=== PATIENT | male | born 1960 | race Caucasian/White ===

== ENCOUNTER → 2022-03-28 09:33 | Outpatient (BNVA) | payer OTHER, SELFPAY | PROVIDERS: Referring Provider Nurse Practitioner Family; Visit Provider Internal Medicine Rheumatology | DX: M05.79 Rheumatoid arthritis with rheumatoid factor of multiple sites without organ or systems involvement (principal); E11.9 Type 2 diabetes mellitus without complications; Z71.85 Encounter for immunization safety counseling; Z79.899 Other long term (current) drug therapy; Z79.4 Long term (current) use of insulin; Z79.84 Long term (current) use of oral hypoglycemic drugs | CPT/HCPCS: 99204 ==

== ENCOUNTER → 2022-05-22 13:39 | Outpatient (BNVA) | payer OTHER, SELFPAY | PROVIDERS: Visit Provider Internal Medicine Rheumatology | DX: M05.79 Rheumatoid arthritis with rheumatoid factor of multiple sites without organ or systems involvement (principal); Z79.899 Other long term (current) drug therapy; E11.9 Type 2 diabetes mellitus without complications; Z71.85 Encounter for immunization safety counseling; Z79.4 Long term (current) use of insulin | CPT/HCPCS: 36415; 80076; 82565; 85025; 86140; 99214 ==

== ENCOUNTER → 2022-08-22 14:09 | Outpatient (BNVA) | payer OTHER, SELFPAY | PROVIDERS: Visit Provider Internal Medicine Rheumatology | DX: M05.79 Rheumatoid arthritis with rheumatoid factor of multiple sites without organ or systems involvement (principal); Z79.899 Other long term (current) drug therapy; E11.9 Type 2 diabetes mellitus without complications; Z71.85 Encounter for immunization safety counseling | CPT/HCPCS: 99214 ==

== ENCOUNTER → 2022-11-21 12:40 | Outpatient (BNVA) | payer OTHER, SELFPAY | PROVIDERS: Visit Provider Internal Medicine Rheumatology | DX: M06.9 Rheumatoid arthritis, unspecified (principal); E11.9 Type 2 diabetes mellitus without complications; Z71.85 Encounter for immunization safety counseling; Z79.899 Other long term (current) drug therapy; M05.79 Rheumatoid arthritis with rheumatoid factor of multiple sites without organ or systems involvement; Z79.4 Long term (current) use of insulin | CPT/HCPCS: 99214 ==

== ENCOUNTER → 2024-01-07 15:02 | Outpatient (BNVA) | payer OTHER, SELFPAY | PROVIDERS: Visit Provider Internal Medicine Rheumatology | DX: M05.79 Rheumatoid arthritis with rheumatoid factor of multiple sites without organ or systems involvement (principal); Z79.899 Other long term (current) drug therapy; Z71.85 Encounter for immunization safety counseling; E11.8 Type 2 diabetes mellitus with unspecified complications; Z11.59 Encounter for screening for other viral diseases; Z11.1 Encounter for screening for respiratory tuberculosis | CPT/HCPCS: 36415; 80076; 82565; 85025; 85651; 86140; 99214 ==

== ENCOUNTER → 2024-02-26 12:21 | Outpatient (BNVA) | payer OTHER, SELFPAY | PROVIDERS: Referring Provider Nurse Practitioner Family; Visit Provider Nurse Practitioner Family | DX: D48.5 Neoplasm of uncertain behavior of skin (principal); L57.0 Actinic keratosis; L82.0 Inflamed seborrheic keratosis; L29.8 Other pruritus; L82.1 Other seborrheic keratosis; L81.7 Pigmented purpuric dermatosis; L72.0 Epidermal cyst; L81.4 Other melanin hyperpigmentation; D18.01 Hemangioma of skin and subcutaneous tissue | CPT/HCPCS: 17000; 17110; 69100; 99203 ==

== ENCOUNTER → 2024-03-11 09:27 | Outpatient (BNVA) | payer OTHER, SELFPAY | PROVIDERS: Visit Provider Dermatology | DX: C44.219 Basal cell carcinoma of skin of left ear and external auricular canal (principal) | CPT/HCPCS: 17311 ==

== ENCOUNTER → 2024-03-25 14:29 | Outpatient (BNVA) | payer OTHER, SELFPAY | PROVIDERS: Visit Provider Dermatology | DX: D22.4 Melanocytic nevi of scalp and neck (principal); L82.0 Inflamed seborrheic keratosis; L82.1 Other seborrheic keratosis; Z85.828 Personal history of other malignant neoplasm of skin | CPT/HCPCS: 17110; 99213 ==

== ENCOUNTER → 2024-04-16 12:37 | Outpatient (BNVA) | payer OTHER, SELFPAY | PROVIDERS: Visit Provider Dermatology | DX: L82.1 Other seborrheic keratosis (principal); D22.5 Melanocytic nevi of trunk; D48.5 Neoplasm of uncertain behavior of skin; Z85.828 Personal history of other malignant neoplasm of skin | CPT/HCPCS: 11104; 99213 ==

== ENCOUNTER → 2024-05-13 13:08 | Outpatient (BNVA) | payer OTHER, SELFPAY | PROVIDERS: Visit Provider Internal Medicine Rheumatology | DX: M05.79 Rheumatoid arthritis with rheumatoid factor of multiple sites without organ or systems involvement (principal); Z79.899 Other long term (current) drug therapy; Z71.85 Encounter for immunization safety counseling; E11.9 Type 2 diabetes mellitus without complications; M19.012 Primary osteoarthritis, left shoulder | CPT/HCPCS: 99214 ==

== ENCOUNTER → 2024-09-09 13:05 | Outpatient (BNVA) | payer OTHER, SELFPAY | PROVIDERS: Visit Provider Internal Medicine Rheumatology | DX: Z79.899 Other long term (current) drug therapy (principal); Z71.85 Encounter for immunization safety counseling; M05.79 Rheumatoid arthritis with rheumatoid factor of multiple sites without organ or systems involvement | CPT/HCPCS: 36415; 80076; 82565; 85025; 85651; 86140; 99214 ==

== ENCOUNTER → 2024-10-14 13:02 | Outpatient (BNVA) | payer OTHER, SELFPAY | PROVIDERS: Visit Provider Nurse Practitioner Family | DX: L73.9 Follicular disorder, unspecified (principal); L89.312 Pressure ulcer of right buttock, stage 2; E13.620 Other specified diabetes mellitus with diabetic dermatitis; L82.1 Other seborrheic keratosis; D22.5 Melanocytic nevi of trunk; Z08 Encounter for follow-up examination after completed treatment for malignant neoplasm; Z85.828 Personal history of other malignant neoplasm of skin; L82.0 Inflamed seborrheic keratosis; L29.89 Other pruritus; R20.9 Unspecified disturbances of skin sensation; L53.8 Other specified erythematous conditions; L57.0 Actinic keratosis | CPT/HCPCS: 17000; 17110; 99214 ==

== ENCOUNTER → 2024-11-10 07:59 | Outpatient (BNVA) | payer OTHER, SELFPAY | PROVIDERS: Visit Provider Nurse Practitioner Family | DX: L57.8 Other skin changes due to chronic exposure to nonionizing radiation (principal); X32.XXXA Exposure to sunlight, initial encounter; L81.4 Other melanin hyperpigmentation; Z08 Encounter for follow-up examination after completed treatment for malignant neoplasm; Z85.828 Personal history of other malignant neoplasm of skin; L82.0 Inflamed seborrheic keratosis; L29.89 Other pruritus; R20.9 Unspecified disturbances of skin sensation; R20.8 Other disturbances of skin sensation; L53.8 Other specified erythematous conditions; D48.5 Neoplasm of uncertain behavior of skin | CPT/HCPCS: 11102; 17110; 99213 ==

== ENCOUNTER 2024-12-11 09:19 | Outpatient (CLI) | payer OTHER, SELFPAY ==
--- NOTE | 2024-12-11 09:32 | CTR_ITS ---
PROCEDURE INFORMATION: Exam: CT Abdomen And Pelvis With Contrast Exam date and time: 12/11/2024 11:08 AM Age: 64 years old Clinical indication: Abdominal pain; Prior surgery; Surgery date: 6+ months; Surgery type: Heart; Epigastric pain belching alot; Additional info: Abdominal tenderness TECHNIQUE: Imaging protocol: Computed tomography of the abdomen and pelvis with contrast. Radiation optimization: All CT scans at this facility use at least one of these dose optimization techniques: automated exposure control; mA and/or kV adjustment per patient size (includes targeted exams where dose is matched to clinical indication); or iterative reconstruction. Contrast material: OMNI 350; Contrast volume: 100 ml; Contrast route: INTRAVENOUS (IV); COMPARISON: CT chest wo con [id number] 12/11/2024 11:06 AM RADIATION DOSE METRICS: Total DLP (mGy-cm): 777.96 FINDINGS: Liver: The liver is enlarged, measuring 21.2 cm craniocaudal. Gallbladder and biliary ducts: Normal. No calcified stones. No ductal dilation. Pancreas: Normal. No ductal dilation. Spleen: The spleen measures 13.6 cm AP. Adrenal glands: Normal. No mass. Kidneys and ureters: Normal. No hydronephrosis. Stomach and bowel: Mild colonic diverticulosis without evidence of acute diverticulitis. Moderate stool throughout the colon. No bowel obstruction. Appendix: No evidence of appendicitis. Intraperitoneal space: Unremarkable. No free air. No significant fluid collection. Vasculature: Mild atherosclerotic aortoiliac calcifications. No abdominal aortic aneurysm. Lymph nodes: Unremarkable. No enlarged lymph nodes. Urinary bladder: Unremarkable as visualized. Reproductive: Unremarkable as visualized. Bones/joints: Degenerative changes of the spine. Slight grade 1 anterolisthesis at L3-L4 and grade 1 anterolisthesis at L4-L5. Soft tissues: Small fat containing right inguinal hernia. Small fat containing umbilical hernia. CT/CT abdomen pelvis w con* [id number] IMPRESSION: 1. No acute findings in the abdomen/pelvis. 2. Moderate colonic stool can be seen with constipation. 3. Mild hepatosplenomegaly.
--- NOTE | 2024-12-11 09:32 | CTR_ITS ---
PROCEDURE INFORMATION: Exam: CT Chest Without Contrast; Diagnostic Exam date and time: 12/11/2024 11:06 AM Age: 64 years old Clinical indication: Abnormal findings; Abnormal radiologic exam of lung or chest; Additional info: Lung nodule TECHNIQUE: Imaging protocol: Diagnostic computed tomography of the chest without contrast. Radiation optimization: All CT scans at this facility use at least one of these dose optimization techniques: automated exposure control; mA and/or kV adjustment per patient size (includes targeted exams where dose is matched to clinical indication); or iterative reconstruction. COMPARISON: No relevant prior studies available. RADIATION DOSE METRICS: Total DLP (mGy-cm): 642.83 FINDINGS: Lungs: No focal consolidation or generalized interstitial process. 7 mm noncalcified solid right lower lobe nodule on series 4, image 30. 6 mm noncalcified solid left lower lobe nodule on image 43. 3 mm noncalcified solid nodule in the left lower lobe on image 35. 2 mm noncalcified solid nodule in the lingula on image 34. Pleural spaces: Unremarkable. No pneumothorax. No pleural effusion. Heart: Unremarkable. No cardiomegaly. No pericardial effusion. Coronary arteries: Multivessel coronary artery calcifications. Lymph nodes: Unremarkable. No enlarged lymph nodes. Vasculature: The thoracic aorta is nonaneurysmal with mild atherosclerotic calcifications. Bones/joints: Surgical anchors partially imaged in the left humeral head. Degenerative changes of the thoracic spine. No acute fracture. Soft tissues: Symmetric mild bilateral gynecomastia. CT/CT chest wo con [id number] IMPRESSION: Pulmonary nodules measuring up to 7 mm. For patients at low risk (minimal or absent history of smoking and of other known risk factors), recommend CT Chest at 3-6 months, then consider CT Chest at 18-24 months. For patients at high risk (history of smoking or of other known risk factors), recommend CT Chest at 3-6 months, then CT Chest at 18-24 months. (Reference: Gildardo) REFERENCES: Gildardo Patel et al. Guidelines for Management of Incidental Pulmonary Nodules Detected on CT Images: From the Fleischner Society 2017. Radiology. 2017;284(1):228-243.
[2024-12-11] MEDS: iohexol 350 mg/mL 500 mL Btl (per mL) IV (11:17)
[2024-12-11] MEDS: iohexol 350 mg/mL 500 mL Btl (per mL) PO (11:17)
== END 2024-12-11 09:20 | disposition home or self-care (01) ==
LOC: RAD 09:20
PROVIDERS: PCP Nurse Practitioner Family; Visit Provider Nurse Practitioner Family
DX: R91.8 Other nonspecific abnormal finding of lung field (principal); R10.819 Abdominal tenderness, unspecified site; R16.2 Hepatomegaly with splenomegaly, not elsewhere classified
CPT/HCPCS: 71250; 74177

== ENCOUNTER → 2024-12-29 11:52 | Outpatient (BNVA) | payer OTHER, SELFPAY | PROVIDERS: PCP Nurse Practitioner Family; Visit Provider Internal Medicine Rheumatology | DX: Z71.85 Encounter for immunization safety counseling (principal); Z79.899 Other long term (current) drug therapy; M05.79 Rheumatoid arthritis with rheumatoid factor of multiple sites without organ or systems involvement | CPT/HCPCS: 36415; 80076; 82565; 85025; 85651; 86140; 86480; 99214 ==

== ENCOUNTER → 2025-04-08 12:45 | Outpatient (BNVA) | payer OTHER, SELFPAY | PROVIDERS: PCP Nurse Practitioner Family; Visit Provider Nurse Practitioner Family | DX: L81.4 Other melanin hyperpigmentation (principal); L82.1 Other seborrheic keratosis; Z08 Encounter for follow-up examination after completed treatment for malignant neoplasm; Z85.828 Personal history of other malignant neoplasm of skin; D48.5 Neoplasm of uncertain behavior of skin | CPT/HCPCS: 11102; 99213 ==

== ENCOUNTER 2025-04-09 13:19 | Outpatient (CLI) | payer OTHER, SELFPAY ==
--- NOTE | 2025-04-09 13:26 | CTR_ITS ---
PROCEDURE INFORMATION: Exam: CT Chest Without Contrast; Diagnostic Exam date and time: 04/09/2025 02:30 PM Age: 64 years old Clinical indication: Condition or disease; Lung condition and disease; Pulmonary nodule, solitary; Prior surgery; Surgery date: 6+ months; Surgery type: Heart; Additional info: Lung nodule TECHNIQUE: Imaging protocol: Diagnostic computed tomography of the chest without contrast. Radiation optimization: All CT scans at this facility use at least one of these dose optimization techniques: automated exposure control; mA and/or kV adjustment per patient size (includes targeted exams where dose is matched to clinical indication); or iterative reconstruction. COMPARISON: CT chest wo con [id number] 12/11/2024 11:06 AM RADIATION DOSE METRICS: Total DLP (mGy-cm): 615.76 FINDINGS: Lungs: Stable 3 mm peripheral left upper lobe pulmonary nodule (series 3, image 24). 8- 9 mm superior segment right lower lobe pulmonary nodule, previously 7 mm (series 3, image 28). 9 mm left lower lobe pulmonary nodule, previously 7 mm (series 3, image 41). 3 mm pulmonary nodule in the peripheral inferior left upper lobe (series 3, image 33). Probable bibasilar atelectasis. Pleural spaces: Biapical pleural thickening. Heart: Heart size is normal. No pericardial effusion. Coronary arteries: Coronary artery calcifications. Lymph nodes: Unremarkable. No enlarged lymph nodes. Vasculature: Atherosclerotic vascular disease. Stomach: Food filled stomach. Bones/joints: Degenerative changes of the spine. Soft tissues: Unremarkable. CT/CT chest wo con [id number] IMPRESSION: Minimally increased in size right lower lobe and left lower lobe pulmonary nodules as above (from 7 to 9 mm).For patients at low risk (minimal or absent history of smoking and of other known risk factors), recommend CT Chest at 3-6 months, then consider CT Chest at 18-24 months. For patients at high risk (history of smoking or of other known risk factors), recommend CT Chest at 3-6 months, then CT Chest at 18-24 months. (Reference: Gildardo) REFERENCES: yenni Ling al. Guidelines for Management of Incidental Pulmonary Nodules Detected on CT Images: From the Fleischner Society 2017. Radiology. 2017;284(1):228-243.
== END 2025-04-09 13:20 | disposition home or self-care (01) ==
LOC: RAD 13:19
PROVIDERS: PCP Nurse Practitioner Family; Visit Provider Nurse Practitioner Family
DX: R91.1 Solitary pulmonary nodule (principal); R93.7 Abnormal findings on diagnostic imaging of other parts of musculoskeletal system; I70.90 Unspecified atherosclerosis; I25.84 Coronary atherosclerosis due to calcified coronary lesion; J92.9 Pleural plaque without asbestos
CPT/HCPCS: 71250

== ENCOUNTER → 2025-05-25 13:01 | Outpatient (BNVA) | payer OTHER, SELFPAY | PROVIDERS: PCP Nurse Practitioner Family; Referring Provider Podiatrist; Visit Provider Internal Medicine | DX: R07.9 Chest pain, unspecified (principal); I49.8 Other specified cardiac arrhythmias; R94.31 Abnormal electrocardiogram [ECG] [EKG] | CPT/HCPCS: 93005 ==

== ENCOUNTER 2025-06-03 12:22 | Outpatient (CLI) | payer OTHER, SELFPAY ==
[2025-06-03 12:51] LABS: Blood Urea Nitrogen 16 mg/dL (8-23)
[2025-06-03] MEDS: iohexol 350 mg/mL 500 mL Btl (per mL) IV (12:54)
--- NOTE | 2025-06-03 14:45 | CTR_ITS ---
PROCEDURE INFORMATION: Exam: CTA Abdominal Aorta and Bilateral Lower Extremities (Run-off) With Contrast Exam date and time: 06/03/2025 12:50 PM Age: 64 years old Clinical indication: Bilateral foot pain and numbness, claudication TECHNIQUE: Imaging protocol: Computed tomographic angiography of the of the abdominal aorta, pelvis and bilateral lower extremities with contrast. 3D rendering (Not supervised by radiologist): MIP and/or 3D reconstructed images were created by the technologist. Radiation optimization: All CT scans at this facility use at least one of these dose optimization techniques: automated exposure control; mA and/or kV adjustment per patient size (includes targeted exams where dose is matched to clinical indication); or iterative reconstruction. Contrast material: OMNIPAQUE 350; Contrast volume: 125 ml; Contrast route: INTRAVENOUS (IV); COMPARISON: CT chest wo [facility] [id number] 04/09/2025 2:30 PM RADIATION DOSE METRICS: Total DLP (mGy-cm): 1892.5 FINDINGS: Aorta: Some atherosclerotic calcification abdominal aorta and iliac vessels. Some atherosclerotic calcification demonstrated of bilateral lower extremity arterial supply. No aneurysm. No dissection. Mild tortuosity of the abdominal aorta and iliac arteries, but no aortoiliac stenosis demonstrated. Patent internal iliac arteries bilaterally. Celiac and mesenteric arteries: No stenosis origin celiac axis and superior mesenteric artery. 50% stenosis origin inferior mesenteric artery. Renal arteries: Patent single renal arteries bilaterally without stenosis. Right iliac arteries: No occlusion or significant stenosis. Right femoral/popliteal arteries: Patent right common femoral artery. Patent right superficial femoral artery. Mild narrowing right superficial femoral artery at the adductor canal. Mild narrowing proximal aspect right popliteal artery. Patent right profunda femoral artery. Right infrapopliteal arteries: Severe stenosis origin right anterior tibial artery with multiple [id number] stenoses right anterior tibial artery. It appears grossly patent extending into the right foot as dorsalis pedis artery. 50% stenosis origin right tibioperoneal trunk. Moderate stenosis origin right posterior tibial artery. [id number] stenoses right posterior tibial artery extending to the right ankle. Small right peroneal artery extending to the right ankle. Small collaterals reconstitute the more distal right posterior tibial artery in the right foot. Left iliac arteries: No occlusion or significant stenosis. Left femoral/popliteal arteries: Patent left common femoral artery. Patent left profunda femoral artery. 50% stenosis distal left superficial femoral artery at level of the adductor canal. Mild stenosis proximal left popliteal artery. 50% stenosis of the midportion left popliteal artery. Left infrapopliteal arteries: 70% stenosis origin left anterior tibial artery. Small left anterior tibial artery appears to extend into left foot as dorsalis pedis artery. 50% stenosis left peroneal artery proximally. 70% stenosis suggested origin left posterior tibial artery. Left posterior tibial artery opacified to left ankle. Left peroneal artery opacified to the left ankle. Some collaterals appear to reconstitute the more distal aspect left posterior tibial artery in the left foot. Veins: Grossly patent portal vein. Lungs: Seven mm noncalcified nodule posterior aspect left lower lobe may be related to previous inflammation/infection; similar finding on previous chest CT 2 months ago. No consolidation lung bases. Pleural spaces: No pleural effusion. Heart: No pericardial effusion. Liver: Hepatomegaly with liver length approximately 20 cm. No focal liver lesion. Gallbladder and biliary ducts: Gallbladder not overly distended. No biliary ductal dilatation. Pancreas: Pancreas appears unremarkable. No pancreatic ductal dilatation. Spleen: Spleen size normal. Findings compatible with perfusion artifact of the spleen. No obvious focal lesion noted in the spleen. Adrenal glands: Adrenal glands appear unremarkable. Kidneys and ureters: No nephrolithiasis noted. No hydronephrosis. Ureters appear grossly unremarkable. No renal mass. Stomach and bowel: Retained food contents in the stomach. No bowel obstruction. No focal bowel wall thickening noted. Terminal ileum appears grossly unremarkable. Appendix: Appendix appears unremarkable. Urinary bladder: Bladder mildly distended but otherwise appears grossly unremarkable. Reproductive: Prostate gland nonenlarged. Seminal vesicles appear unremarkable. Intraperitoneal space: No ascites. Lymph nodes: No adenopathy noted. Bones/joints: Mild leftward curvature lumbar spine. Facet hypertrophy lower lumbar spine. No acute fracture noted. No lytic or blastic process noted. Soft tissues: No mass or abnormal fluid collection noted of the abdominal wall. 16 mm diameter hernia defect at level of the umbilicus containing fat. Findings suggest small right inguinal hernia containing fat. No bowel herniation. Other findings: No mass or abscess noted of the lower extremities. No mass noted in the pelvis. No acute focal inflammatory process noted within the abdomen or pelvis. No abscess noted. CT/CT angio abd aorta runof [id number] IMPRESSION: 1. Atherosclerotic changes but no aneurysm, dissection or acute thrombosis demonstrated. No aortoiliac stenosis. Patent common femoral arteries bilaterally. Mild stenosis distal superficial femoral arteries bilaterally. Mild stenosis of the popliteal arteries bilaterally. Greater degree of stenosis involving bilateral trifurcation vessels. 2. No mesenteric or renal artery stenosis. 3. No acute process noted on this exam. 4. Hepatomegaly. 5. No adenopathy noted.
== END 2025-06-03 12:23 | disposition home or self-care (01) ==
LOC: RAD 12:23
PROVIDERS: PCP Nurse Practitioner Family; Visit Provider Internal Medicine
DX: I73.9 Peripheral vascular disease, unspecified (principal); R91.1 Solitary pulmonary nodule; R16.0 Hepatomegaly, not elsewhere classified; M43.9 Deforming dorsopathy, unspecified; K40.90 Unilateral inguinal hernia, without obstruction or gangrene, not specified as recurrent
CPT/HCPCS: 75635; 82565; 84520